=== PATIENT | female | born 1960 | race Caucasian/White ===

== ENCOUNTER 2019-09-18 05:18 | Observation (INO) | payer SELFPAY ==
[2019-09-14 13:48] VITALS: BMI 26.7
[2019-09-18] VITALS (24 sets, daily range): BP systolic 108–141; BP diastolic 55–80; PULSE 62–86; RESP 10–27; Ht 162.6 cm; Wt 77.0 kg
[~2019-09-18] VITALS: Ht 162.6 cm; Wt 77.0 kg
[~2019-09-18 05:18] MED LIST: DICL100G37 TOP; DICL50TA11 PO; GABA300C16 PO; MIRA50TA PO
[2019-09-18] MEDS ORDERED: LACTATED RINGER'S 1,000 ML IV SCH (06:30)
[2019-09-18] MEDS ORDERED: ROPIVACAINE 0.5 % 30 ML VIAL ONE ×2 (06:46→07:08)
[2019-09-18] MEDS ORDERED: POLYMYXIN/BACITRACIN 1L IRRIG ONE (06:47)
[2019-09-18] MEDS ORDERED: POVIDONE IODINE 10% 28.4 GM OINT ONE (06:47)
[2019-09-18] MEDS ORDERED: SCOPOLAMINE 1.5 MG PATCH ONE (07:02)
[2019-09-18] MEDS ORDERED: PROPOFOL 100 ML ONE ×4 (07:02→10:44)
[2019-09-18] MEDS ORDERED: LIDOCAINE 2% (SDV) 5 ML INJ ONE (07:02)
[2019-09-18] MEDS ORDERED: SUCCINYLCHOLINE CHLORIDE 100 MG/5 ML SYG IV ONE (07:02)
[2019-09-18] MEDS ORDERED: ROCURONIUM 50 MG INJ ONE ×2 (07:02→07:52)
[2019-09-18] MEDS ORDERED: PROPOFOL 0 ML ONE (07:02)
[2019-09-18] MEDS ORDERED: MIDAZOLAM 1 MG/ML 2 ML INJ ONE (07:03)
[2019-09-18] MEDS ORDERED: ONDANSETRON 4 MG INJ ONE (07:38)
[2019-09-18] MEDS ORDERED: DEXAMETHASONE 4 MG/ML 5 ML INJ ONE (07:38)
[2019-09-18] MEDS ORDERED: CEFAZOLIN 1 GM INJ ONE (07:38)
[2019-09-18] MEDS ORDERED: FAMOTIDINE 20 MG INJ ONE (07:38)
[2019-09-18] MEDS ORDERED: THROMBIN 5000 UNIT (RECOTHROM) VIAL ONE (08:05)
[2019-09-18] MEDS ORDERED: GELATIN SIZE 100 SPONGE ONE (08:05)
[2019-09-18] MEDS ORDERED: POLYMYXIN/BACITRACIN 1L IRRIG IRR ONE ×2 (08:16→12:20)
[2019-09-18] MEDS ORDERED: LABETALOL HCL 20MG INJ ONE (08:16)
[2019-09-18] MEDS ORDERED: hydrALAzine 20 MG INJ ONE (09:01)
[2019-09-18] MEDS ORDERED: OXYCODONE/ACETAMINOPHEN (5/325) TAB PO PRN (12:00)
[2019-09-18] MEDS ORDERED: HYDROmorphONE 0.2 MG/ML PCA IV SCH (12:00)
[2019-09-18] MEDS ORDERED: morphine 10 MG INJ IV PRN (12:00)
[2019-09-18] MEDS ORDERED: DIPHENHYDRAMINE 25 MG CAP PO PRN (12:00)
[2019-09-18] MEDS ORDERED: ONDANSETRON 4 MG INJ IV PRN (12:00)
[2019-09-18] MEDS ORDERED: BISACODYL 10 MG SUPP PR PRN (12:00)
[2019-09-18] MEDS ORDERED: SUGAMMADEX SODIUM 200 MG/2 ML VIAL IV ONE (12:23)
[2019-09-18] MEDS: ARTIFICIAL TEARS 15 ML OPH RIGHT EYE SCH ×3 (14:30→20:52)
[2019-09-18] MEDS: SOD CHLORIDE 0.9% 1,000 ML IV SCH (14:34)
[2019-09-18] MEDS: GABAPENTIN 300 MG CAP PO SCH ×3 (14:41→20:52)
[2019-09-18] MEDS: CEFAZOLIN 1 GM/50 ML (PMX) 50 ML IVPB SCH ×2 (16:20→20:00)
[2019-09-18] MEDS: SENNA/DOCUSATE NA (8.6MG/50MG) TAB PO SCH (20:52)
[2019-09-19] MEDS: SOD CHLORIDE 0.9% 1,000 ML IV SCH ×2 (01:00→09:03)
[2019-09-19] MEDS: CEFAZOLIN 1 GM/50 ML (PMX) 50 ML IVPB SCH ×2 (01:18→12:22)
[2019-09-19 01:49] VITALS: BP 104/53; PULSE 62; RESP 18
[2019-09-19 08:30] VITALS: BP 98/51; PULSE 85; RESP 18
[2019-09-19] MEDS: SENNA/DOCUSATE NA (8.6MG/50MG) TAB PO SCH (09:00)
[2019-09-19] MEDS: GABAPENTIN 300 MG CAP PO SCH ×2 (09:00→12:23)
[2019-09-19] MEDS: ARTIFICIAL TEARS 15 ML OPH RIGHT EYE SCH ×2 (09:06→12:22)
[2019-09-19 14:52] VITALS: BP 115/62; PULSE 78; RESP 19
[2019-09-19] MEDS ORDERED: RIVAROXABAN 10 MG TABLET PO SCH (17:55)
[2019-09-20] MEDS ORDERED: MAGNESIUM HYDROXIDE 30ML CUP PO SCH (21:00)
== END 2019-09-19 15:35 | disposition home or self-care (01) ==
LOC: SDS 05:18 → REC 12:21 → MS1 14:15
PROVIDERS: ADMIT Orthopaedic Surgery; ATTEND Orthopaedic Surgery
DX: M19.072 Primary osteoarthritis, left ankle and foot (principal); S92.002A Unspecified fracture of left calcaneus, initial encounter for closed fracture
CPT/HCPCS: 20680; 20902; 28730; 28737; 73630; 87070; 87075; 97161; 97530; C1713; G0378; J0360; J0690; J1100; J1170; J2250; J2405; J2795; J3010; J7030